=== PATIENT | female | born 1970 | race Caucasian/White ===

== ENCOUNTER 2021-08-02 06:55 | Day surgery (SDC) | payer MEDICAID ==
[~2021-08-02] VITALS: Ht 149.9 cm; Wt 54.4 kg
[2021-08-02] MEDS ORDERED: MEPERIDINE 100 MG INJ. 100 MG/ML VIAL ONE (07:44)
[2021-08-02] MEDS ORDERED: SIMETHICONE 40 MG/0.6 ML ML ONE (07:44)
[2021-08-02] MEDS: MIDAZOLAM HCL 5 MG/5 ML VIAL ONE ×4 (08:20→08:27)
[2021-08-02 13:48] VITALS: BP_SYST 156
== END 2021-08-02 09:30 | disposition home or self-care (01) ==
LOC: SDS 06:55 → SMU 08:10 → SDS 09:30
PROVIDERS: ATTEND Internal Medicine Gastroenterology
DX: Z12.11 Encounter for screening for malignant neoplasm of colon (principal); Z20.822 Contact with and (suspected) exposure to COVID-19; Z79.899 Other long term (current) drug therapy
CPT/HCPCS: 36415; 45378; 82962; 87426; 99152; G0378; J2175; J2250